=== PATIENT | female | born 1965 | race Caucasian/White ===

== ENCOUNTER → 2024-02-23 | Outpatient (CLI) | payer OTHER ==
[~2024-02-23] MED LIST: ALBU90OI; CYCL10 PO; HYDACE5 PO; HYDACE5325 PO; IV ANTIBIOTIC; NAPR220; ONDA8 PO; OXYACE5T; TRAM50 PO; ZOLP5 PO
== END ==
LOC: PLD 07:52 → LAB SHORT 07:52 → LAB 07:52
DX: L82.1 Other seborrheic keratosis (principal); L98.9 Disorder of the skin and subcutaneous tissue, unspecified
CPT/HCPCS: 88305